=== PATIENT | female | born 1960 | race African-American/Black ===

== ENCOUNTER 2017-11-21 07:54 | Emergency (ER) | payer MEDICAID ==
[~2017-11-21] VITALS: Ht 157.5 cm; Wt 145.0 kg
[2017-11-21 08:27] VITALS: BP 166/94
[2017-11-21] MEDS ORDERED: IBUPROFEN 400MG TABLET PO ONE (08:45)
== END 2017-11-21 09:10 | disposition home or self-care (01) ==
LOC: ER 07:54
DX: M54.6 Pain in thoracic spine (principal); R05 Cough; E66.9 Obesity, unspecified; M25.512 Pain in left shoulder; Z98.890 Other specified postprocedural states
CPT/HCPCS: 99282

== ENCOUNTER 2018-08-15 11:56 | Emergency (ER) | payer MEDICAID ==
[~2018-08-15] VITALS: Ht 157.5 cm; Wt 147.0 kg
[2018-08-15] MEDS ORDERED: IBUPROFEN 600MG TABLET PO ONE (14:15)
[2018-08-15 17:35] VITALS: BP 132/79
== END 2018-08-15 17:36 | disposition home or self-care (01) ==
LOC: ER 11:56
DX: M65.842 Other synovitis and tenosynovitis, left hand (principal); R03.0 Elevated blood-pressure reading, without diagnosis of hypertension
CPT/HCPCS: 29125; 73140; 99284

== ENCOUNTER 2018-11-26 08:49 | Emergency (ER) | payer MEDICAID ==
[~2018-11-26] VITALS: Ht 154.9 cm; Wt 147.0 kg
[2018-11-26 08:59] VITALS: BP 138/79
== END 2018-11-26 10:53 | disposition home or self-care (01) ==
LOC: ER 08:49
DX: J06.9 Acute upper respiratory infection, unspecified (principal); R03.0 Elevated blood-pressure reading, without diagnosis of hypertension; Z98.890 Other specified postprocedural states
CPT/HCPCS: 71045; 99283; Z7610

== ENCOUNTER 2019-03-06 16:04 | Emergency (ER) | payer MEDICAID ==
[~2019-03-06] VITALS: Ht 154.9 cm; Wt 148.0 kg
[2019-03-06] MEDS ORDERED: ACETAMINOPHEN 325MG TABLET PO STA (19:31)
[2019-03-06] MEDS ORDERED: FAMOTIDINE 20MG TABLET PO ONE (19:45)
[2019-03-06 19:53] LABS: BASOPHILS % 0.4 % (0.0-2.0); EOSINOPHILS % 0.4 % (0.0-5.0); HEMATOCRIT. 38.2 % (36.0-48.0); LYMPHOCYTES % 26.1 % (20.0-50.0); MEAN CORPUSCULAR VOLUME 87.7 fL (81.0-99.0); MEAN PLATELET VOLUME 7.7 fl (7.4-10.4); MONOCYTES % 7.7 % (2.0-8.0); NEUTROPHILS % 65.4 % (40.0-76.0); PLATELET 318 x1000/uL (130-400); RED BLOOD CELL COUNT 4.35 mill/uL (4.2-5.4); RED CELL DISTRIBUTION WIDTH 14.6 % (11.6-14.6)
[2019-03-06 19:57] LABS: CHLORIDE 109 mEq/L (98-107)
[2019-03-06 22:10] LABS: CLARITY URINE CLEAR (CLEAR); COLOR URINE YELLOW (YELLOW); KETONES URINE NEGATIVE (NEGATIVE); LEUKOCYTE ESTERASE URINE NEGATIVE (NEGATIVE); NITRITE URINE NEGATIVE (NEGATIVE); OCCULT BLOOD URINE 3+ (NEGATIVE); PROTEIN URINE NEGATIVE (NEGATIVE); SPECIFIC GRAVITY URINE 1.011 (1.005-1.030); UROBILINOGEN URINE 0.2 E.U./dL (0.2-1.0)
[2019-03-06 22:45] VITALS: BP 140/57
== END 2019-03-06 23:14 | disposition home or self-care (01) ==
LOC: ER 16:04
DX: N39.0 Urinary tract infection, site not specified (principal); R03.0 Elevated blood-pressure reading, without diagnosis of hypertension
CPT/HCPCS: 36415; 99283

== ENCOUNTER 2025-01-11 15:40 | Emergency (ER) | payer MEDICARE, OTHER ==
[~2025-01-11] VITALS: Ht 154.9 cm; Wt 131.5 kg
[~2025-01-11 15:40] MED LIST: TOPUD MT
[2025-01-11 15:42] VITALS: O2SAT 99
[2025-01-11 16:04] VITALS: BP 167/91; PULSE 97; RESP 18; TEMP 36.7; O2SAT 98
[2025-01-11] MEDS ORDERED: ERYT1OIN6 EACHEYE (19:03)
[2025-01-11] MEDS ORDERED: DOXY-461 MT (19:03)
== END 2025-01-11 19:19 | disposition home or self-care (01) ==
LOC: ER 15:40
DX: H10.33 Unspecified acute conjunctivitis, bilateral (principal); H01.006 Unspecified blepharitis left eye, unspecified eyelid; H01.003 Unspecified blepharitis right eye, unspecified eyelid; I10 Essential (primary) hypertension; Z79.899 Other long term (current) drug therapy
CPT/HCPCS: 99283

== ENCOUNTER 2025-05-21 18:06 | Emergency (ER) | payer MEDICARE, OTHER ==
[~2025-05-21] VITALS: Ht 162.6 cm; Wt 115.0 kg
[~2025-05-21 18:06] MED LIST changes: +DOXY-461 MT; +ERYT1OIN6 EACHEYE
[2025-05-21 18:09] VITALS: O2SAT 97
[2025-05-21 18:23] VITALS: BP 151/96; PULSE 110; RESP 16; TEMP 36.8; O2SAT 95
[2025-05-21 21:02] LABS: BASOPHILS % 0.6 % (0.0-2.0); EOSINOPHILS % 1.1 % (0.0-5.0); HEMATOCRIT. 41.2 % (36.0-48.0); HEMOGLOBIN. 13.7 g/dL (12.0-16.0); LYMPHOCYTES % 28.7 % (20.0-50.0); MEAN PLATELET VOLUME 7.9 fl (7.4-10.4); MONOCYTES % 9.7 % (2.0-8.0); NEUTROPHILS % 59.9 % (40.0-76.0); PLATELET 217 x1000/uL (130-400); RED BLOOD CELL COUNT 4.62 mill/uL (4.2-5.4); RED CELL DISTRIBUTION WIDTH 14.7 % (11.6-14.6)
[2025-05-21 21:15] LABS: CREATININE 1.0 mg/dL (0.6-1.0); UREA NITROGEN BLOOD 14 mg/dL (9-23)
[2025-05-21 21:17] LABS: ASPARTATE AMINOTRANSFERASE 18 IU/L (<34); BILIRUBIN TOTAL 0.4 mg/dL (0.1-1.0); PROTEIN TOTAL 7.9 g/dL (6.0-8.3)
[2025-05-21 21:32] LABS: CLARITY URINE TURBID (CLEAR); COLOR URINE ORANGE (YELLOW); GLUCOSE URINE NEGATIVE (NEGATIVE); KETONES URINE TRACE (NEGATIVE); LEUKOCYTE ESTERASE URINE 1+ (NEGATIVE); NITRITE URINE NEGATIVE (NEGATIVE); OCCULT BLOOD URINE 3+ (NEGATIVE); PH URINE 5.5 (4.5-8.0); PROTEIN URINE 2+ (NEGATIVE); SPECIFIC GRAVITY URINE 1.023 (1.005-1.030); UROBILINOGEN URINE 1.0 E.U./dL (0.2-1.0)
[2025-05-21 21:46] LABS: BACTERIA URINE 2+; SQUAMOUS EPITHELIAL CELL URINE 1+ /lpf (RARE/1+)
[2025-05-21] MEDS ORDERED: SENN-139 MT (22:34)
[2025-05-21] MEDS ORDERED: IBUP-2029 MT (22:34)
[2025-05-21] MEDS ORDERED: CEPH500T MT (22:34)
== END 2025-05-21 22:55 | disposition home or self-care (01) ==
LOC: ER 18:06
DX: N39.0 Urinary tract infection, site not specified (principal); Z79.899 Other long term (current) drug therapy; Z98.890 Other specified postprocedural states
CPT/HCPCS: 36415; 80053; 81003; 85025; 99283